=== PATIENT | male | born 1995 | race African-American/Black ===

== ENCOUNTER 2023-01-22 21:23 | Emergency (ER) | payer OTHER ==
[~2023-01-22] VITALS: Ht 182.9 cm; Wt 111.0 kg
[2023-01-22 21:39] VITALS: BP 148/94; O2SAT 100
[2023-01-22 23:13] VITALS: PULSE 70; RESP 18; TEMP 98.3
== END 2023-01-23 00:15 | disposition home or self-care (01) ==
LOC: ER 23:31
DX: S16.1XXA Strain of muscle, fascia and tendon at neck level, initial encounter (principal); S39.012A Strain of muscle, fascia and tendon of lower back, initial encounter; F41.9 Anxiety disorder, unspecified; V49.49XA Driver injured in collision with other motor vehicles in traffic accident, initial encounter; Y93.89 Activity, other specified; Y92.89 Other specified places as the place of occurrence of the external cause; Y99.8 Other external cause status
CPT/HCPCS: 99281